=== PATIENT | male | born 2000 | race Caucasian/White ===

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

== ENCOUNTER 2019-08-02 13:42 | Emergency (ER) | payer MEDICAID ==
[~2019-08-02] VITALS: Ht 177.8 cm; Wt 56.0 kg
[2019-08-02 14:15] VITALS: BP 119/70
[2019-08-02] MEDS ORDERED: LIDOcaine 1% W/epiNEPHrine 1:200,000 10ml vial IJ ONE (15:20)
[2019-08-02] MEDS ORDERED: TETanus/Pertussis (Acell)/Diphther VAC/PF (Tdap-Adult) 0.5ml syringe IMVAC ONE (15:20)
== END 2019-08-02 17:14 | disposition home or self-care (01) ==
LOC: ER 13:43
DX: S91.311A Laceration without foreign body, right foot, initial encounter (principal); W26.0XXA Contact with knife, initial encounter; Y93.89 Activity, other specified; Y92.89 Other specified places as the place of occurrence of the external cause; Y99.8 Other external cause status
CPT/HCPCS: 12001; 12002; 99283

== ENCOUNTER 2019-08-14 14:04 | Emergency (ER) | payer MEDICAID ==
[~2019-08-14] VITALS: Ht 180.3 cm; Wt 56.0 kg
[2019-08-14 14:11] VITALS: BP 18/53
== END 2019-08-14 15:04 | disposition home or self-care (01) ==
LOC: ER 14:06
DX: S91.311D Laceration without foreign body, right foot, subsequent encounter (principal); W26.0XXD Contact with knife, subsequent encounter
CPT/HCPCS: 99282

== ENCOUNTER 2020-03-01 13:51 | Emergency (ER) | payer MEDICAID, OTHER ==
[~2020-03-01] VITALS: Ht 177.8 cm; Wt 65.0 kg
[2020-03-01] MEDS ORDERED: HYDROcodone/acetaminophen 5mg/325mg tablet PO ONE ×2 (15:10→15:40)
--- NOTE | 2020-03-01 15:16 | NUR ---
RECEIVED VO TO GIVE COMPAZINE 10MG IM X 1 NOW AND BENADRYL 25MG IM X1 NOW.
[2020-03-01] MEDS ORDERED: proCHLORperazine 10 MG/2 ml inj IM ONE (15:25)
[2020-03-01] MEDS ORDERED: diphenhydrAMINE 50 mg/ml inj IM ONE (15:25)
[2020-03-01 16:09] VITALS: BP 118/61
== END 2020-03-01 16:10 | disposition home or self-care (01) ==
LOC: ER 13:52
DX: F07.81 Postconcussional syndrome (principal); R51 Headache
CPT/HCPCS: 96372; 99284; J0780; J1200

== ENCOUNTER 2021-11-24 00:30 | Emergency (ER) | payer MEDICAID, OTHER ==
[~2021-11-24] VITALS: Ht 177.8 cm; Wt 63.6 kg
[2021-11-24 00:39] VITALS: BP 122/84
[2021-11-24] MEDS ORDERED: famotidine 20mg tablet PO ONE (01:05)
[2021-11-24] MEDS ORDERED: ondansetron 4mg rapidly disintigrating tab PO ONE (01:05)
[2021-11-24] MEDS ORDERED: sucralfate 1 gm tablet PO ONE (01:05)
[2021-11-24] MEDS ORDERED: AMOX500C2 PO (01:53)
[2021-11-24] MEDS ORDERED: ONDA8TAB13 PO (01:53)
== END 2021-11-24 02:04 | disposition home or self-care (01) ==
LOC: ER 00:31
DX: K22.6 Gastro-esophageal laceration-hemorrhage syndrome (principal); K29.20 Alcoholic gastritis without bleeding; Z79.899 Other long term (current) drug therapy
CPT/HCPCS: 99284

== ENCOUNTER 2021-12-04 17:50 | Emergency (ER) | payer OTHER ==
[~2021-12-04] VITALS: Ht 177.8 cm; Wt 68.2 kg
[~2021-12-04 17:50] MED LIST: AMOX500C2 PO; ONDA8TAB13 PO
[2021-12-04] MEDS ORDERED: amox tr/potassium clavulanate 875/125mg TAB PO ONE (20:35)
[2021-12-04] MEDS ORDERED: ALBU8HFA PO (22:07)
[2021-12-04] MEDS ORDERED: BENZ-38 PO (22:07)
[2021-12-04] MEDS ORDERED: AMOX-117 PO (22:07)
[2021-12-04] MEDS ORDERED: benzonatate 100mg capsule PO ONE (22:10)
[2021-12-04 22:36] VITALS: BP 97/53
== END 2021-12-04 22:24 | disposition home or self-care (01) ==
LOC: ER 17:51
DX: H66.93 Otitis media, unspecified, bilateral (principal); Z20.822 Contact with and (suspected) exposure to COVID-19; J32.9 Chronic sinusitis, unspecified; J11.1 Influenza due to unidentified influenza virus with other respiratory manifestations; Z72.89 Other problems related to lifestyle; Z79.2 Long term (current) use of antibiotics; Z79.899 Other long term (current) drug therapy
CPT/HCPCS: 87502; 87503; 87635; 99283; C9803